=== PATIENT | male | born 1950 | race Caucasian/White ===

== ENCOUNTER 2018-12-27 09:55 | Emergency (ER) | payer BC, MEDICARE ==
[~2018-12-27] VITALS: Wt 69.0 kg
[2018-12-27] MEDS ORDERED: ONDANSETRON 4 MG INJ IV STA (10:00)
[2018-12-27] MEDS ORDERED: SOD CHLORIDE 0.9% 1,000 ML IV STA (10:00)
[2018-12-27] MEDS ORDERED: morphine 4 MG/ML VIAL IV STA (10:00)
[2018-12-27] MEDS ORDERED: CIPR500T4 PO (11:11)
[2018-12-27] MEDS ORDERED: ONDA4TAB14 PO (11:11)
[2018-12-27] MEDS ORDERED: METR500T PO (11:11)
[2018-12-27] MEDS ORDERED: IBUP-1542 PO (11:11)
--- NOTE | 2018-12-27 12:18 | ERD ---
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 The patient was brought in by ambulance. He has lower abdominal pain which he describes as "spasms". He had nausea and sweating. He was pale. The symptoms started 1.5 hours ago and was sudden in o nset. He denies fevers. He tried Motrin for pain. He denies testicular pain. He was given Zofran by paramedics. His primary doctor is Dr. Bryant. ROS All systems reviewed and are negative except as per history of present illness. Medications Home Meds Active Scripts Metronidazole* (Flagyl*) 500 Mg Tablet, 500 MG PO TID for 7 Days, TAB Prov:JACK BAKER MD 12/27/18 Ciprofloxacin Hcl* (Ciprofloxacin Hcl*) 500 Mg Tablet, 500 MG PO BID for 7 Days, TAB Prov:JACK BAKER MD 12/27/18 Ondansetron (Ondansetron Odt) 4 Mg Tab.rapdis, 4 MG PO Q6H PRN for NAUSEA AND/OR VOMITING, #10 TAB Prov:JACK BAKER MD 12/27/18 Ibuprofen* (Motrin*) 600 Mg Tab, 600 MG PO Q6H PRN for PAIN AND OR ELEVATED TEMP, #30 TAB Prov:JACK BAKER MD 12/27/18 PMhx/Soc History of Surgery: Yes (CHOLECYSTECTOMY) Anesthesia Reaction: No Hx Neurological Disorder: No Hx Respiratory Disorders: No Hx Cardiac Disorders: Yes (HTN) Hx Psychiatric Problems: No Hx Miscellaneous Medical Probl: Yes (GAL STONES, DIVERTICULITIS) Hx Alcohol Use: Yes (OCCASSIONAL) Hx Substance Use: No Hx Tobacco Use: No Smoking Status: Never smoker FmHx Family History: No diabetes Physical Exam Vitals Vital Signs Date Temp Pulse Resp B/P (MAP) Pulse Ox O2 O2 Flow FiO2 Time Delivery Rate 12/27/18 97.3 61 18 120/68 98 Room Air 10:47 (85) 12/27/18 97.3 70 18 135/71 99 10:11 (92) Physical Exam Const: No acute distress Head: Atraumatic Eyes: Normal Conjunctiva ENT: Normal External Ears, Nose and Mouth. Neck: Full range of motion. No meningismus. Resp: Clear to auscultation bilaterally Cardio: Regular rate and rhythm, no murmurs Abd: Soft, bilateral lower abdominal pain to palpation without rebound or guarding Skin: No petechiae or rashes Back: No midline or flank tenderness Ext: No cyanosis, or edema Neur: Awake and alert Psych: Normal Mood and Affect Result Diagram: 12/27/18 1035 12/27/18 1035 Results 24 hrs Laboratory Tests Test 12/27/18 10:35 White Blood Count 14.2 10^3/ul Red Blood Count 4.76 10^6/ul Hemoglobin 14.3 g/dl Hematocrit 41.8 % Mean Corpuscular Volume 87.8 fl Mean Corpuscular Hemoglobin 30.0 pg Mean Corpuscular Hemoglobin Concent 34.2 g/dl Red Cell Distribution Width 13.4 % Platelet Count 169 10^3/UL Mean Platelet Volume 10.1 fl Immature Granulocytes % 0.600 % Neutrophils % 82.3 % Lymphocytes % 10.5 % Monocytes % 4.9 % Eosinophils % 1.3 % Basophils % 0.4 % Nucleated Red Blood Cells % 0.0 /100WBC Immature Granulocytes # 0.090 10^3/ul Neutrophils # 11.7 10^3/ul Lymphocytes # 1.5 10^3/ul Monocytes # 0.7 10^3/ul Eosinophils # 0.2 10^3/ul Basophils # 0.1 10^3/ul Nucleated Red Blood Cells # 0.0 10^3/ul Urine Color YELLOW Urine Clarity CLEAR Urine pH 5.0 Urine Specific [place] 1.009 Urine Ketones NEGATIVE mg/dL Urine Nitrite NEGATIVE mg/dL Urine Bilirubin NEGATIVE mg/dL Urine Urobilinogen NEGATIVE mg/dL Urine Leukocyte Esterase NEGATIVE [place]/ul Urine Hemoglobin NEGATIVE mg/dL Urine Glucose NEGATIVE mg/dL Urine Total Protein NEGATIVE mg/dl Sodium Level 145 mmol/L Potassium Level 3.3 mmol/L Chloride Level 106 mmol/L Carbon Dioxide Level 28 mmol/L Anion Gap 11 Blood Urea Nitrogen 32 mg/dl Creatinine 0.99 mg/dl Est Glomerular Filtrat Rate mL/min > 60 mL/min Glucose Level 192 mg/dl Calcium Level 9.7 mg/dl Total Bilirubin 1.7 mg/dl Direct Bilirubin 0.00 mg/dl Indirect Bilirubin 1.7 mg/dl Aspartate Amino Transf (AST/SGOT) 21 IU/L Alanine Aminotransferase (ALT/SGPT) 20 IU/L Alkaline Phosphatase 66 IU/L Total Protein 7.7 g/dl Albumin 4.4 g/dl Globulin 3.30 g/dl Albumin/Globulin Ratio 1.33 Lipase 89 U/L Current Medications Medications Dose Sig/Bill Start Time Status Last (Trade) Ordered Route PRN Stop Time Admin Dose Reason Admin Sodium 1,000 ml @ Q1H STAT 12/27/18 DC 12/27/18 Chloride 1,000 mls/hr IV 10:00 10:36 12/27/18 10:59 Morphine 4 mg ONCE STAT 12/27/18 DC 12/27/18 Sulfate IV 10:00 10:36 (morphine) 12/27/18 10:02 Ondansetron 4 mg ONCE STAT 12/27/18 DC 12/27/18 HCl (Zofran IV 10:00 10:36 Inj) 12/27/18 10:02 Procedures/MDM CT abdomen pelvis shows colitis per radiology. Patient is a 68-year-old male who presents with abdominal pain. White count is slightly elevated. CT scan shows colitis but no signs of abscess or perforation. He would prefer to go home at this time. I believe outpatient management is appropriate as he does feel better after treatment and his vitals are stable. The patient will be discharged with a prescription for Cipro, Flagyl, ibuprofen, and Zofran. He will need to follow-up closely with his primary doctor within 24 to 48 hours for reevaluation. He can return sooner for any worsening symptoms. Departure Diagnosis: Primary Impression: Colitis Additional Impression: Abdominal pain Abdominal location: unspecified location Qualified Codes: R10.9 - Unspecified abdominal pain Condition: Fair Patient Instructions: Abdominal Pain Referrals: SAMANTHA BRYANT MD (PCP) Additional Instructions: Call your primary care doctor TOMORROW for an appointment during the next 1-2 days.See the doctor sooner or return here if your condition worsens before your appointment time. JACK BAKER MD Dec 27, 2018 12:18
[2018-12-27 12:28] VITALS: BP 110/55; PULSE 66; RESP 18
== END 2018-12-27 12:29 | disposition home or self-care (01) ==
LOC: E/R 09:55
DX: K52.9 Noninfective gastroenteritis and colitis, unspecified (principal); I25.10 Atherosclerotic heart disease of native coronary artery without angina pectoris; I10 Essential (primary) hypertension
CPT/HCPCS: 36415; 74176; 80053; 81003; 83690; 85025; 96374; 96375; 99285; J2270; J2405; J7030